=== PATIENT | female | born 1965 | race Caucasian/White ===

== ENCOUNTER 2019-06-03 22:07 | Inpatient (IN) | payer BC ==
[~2019-06-03] VITALS: Ht 165.1 cm; Wt 99.9 kg
[2019-06-03] MEDS: D5.45%NS/KCL 20MEQ 1,000 ML IV SCH (01:45)
[2019-06-03] MEDS ORDERED: ONDANSETRON HCL INJ 2MG/ML 2ML 2 MG/ML VIAL IV STA (22:18)
[2019-06-03] MEDS ORDERED: KETOROLAC TROMETHAMINE 30 MG/ML VIAL IV STA (22:18)
--- NOTE | 2019-06-03 22:56 | Diagnostic Imaging Report ---
CT Abdomen and Pelvis without contrast INDICATION: Right upper quadrant pain, ^ruq abd pain ^[id number] ^[id number] TECHNIQUE: Thin collimation axial images obtained from the diaphragm to the level of the pubic symphysis without nonionic intravenous contrast. Dose reduction techniques used: Automated exposure control, adjustment of the mAs and/or kVp according to patient size, standardized low-dose protocol, and/or iterative reconstruction technique. RADIATION DOSE: Total DLP: 792.6 mGy*cm Estimated effective dose: (DLP x 0.015 x size factor) mSv CTDIvol has been reviewed. It is below the limits set by the Radiation Protocol Committee (RPC). COMPARISON: None. ABDOMEN FINDINGS: Lung Bases: Clear. The visualized portion of the mediastinum is normal. Liver: Normal in attenuation without mass. Gallbladder: Present and contains multiple calcified gallstones measuring up to 2 cm. The gallbladder rodrigues are mildly thickened. No ductal dilatation. Pancreas: Normal attenuation without mass. Spleen: Normal size without mass. Adrenal Glands: No evidence for mass. Kidneys: Right: No renal calculus. No cortical mass or hydronephrosis Left: No renal calculus. No cortical mass or hydronephrosis Lymph Nodes: No lymphadenopathy. Aorta: Normal in diameter. PELVIS FINDINGS: Bowel: Stomach: Normal. Small Bowel: Normal in caliber with normal wall thickness. Large Bowel: Diverticulosis coli. No associated inflammation. No large bowel dilatation. Appendix: Normal. Bladder: Normal. Ureters: No ureteral dilatation or calculus. The uterus is present and normal in morphology. No adnexal mass. Peritoneum/retroperitoneum: No free fluid or fluid collection. Bones: Mild degenerative changes of the spine particularly on the right at L4-5. IMPRESSION: 1. Cholelithiasis with gallbladder wall thickening. Please correlate for signs/symptoms of acute cholecystitis. No biliary ductal dilatation. 2. Diverticulosis coli. No diverticulitis. No bowel obstruction. Normal appendix. Signed by: Dr. Mamie River MD on 06/03/2019 10:54 PM
--- NOTE | 2019-06-03 23:32 | NUR ---
[facility] NOTIFED OF TRANSFER NO ETA GIVEN, SPOKE WITH ROSITA
[2019-06-03] MEDS ORDERED: LEVOFLOXACIN 500MG/D5W 100ML 100 ML IV STA (23:35)
[2019-06-03] MEDS ORDERED: METRONIDAZOLE 500MG/NS 100ML 100 ML IV STA (23:35)
--- OUTSIDE RECORDS SUMMARY | 2019-06-03 23:47 | XMS REPORT ---
Author [facility] Address Unknown Phone Unavailable Care Team Providers Care Interior Wall Assembler Name Role Phone TERE LEYVA Unavailable Unavailable Problems This patient has no known problems. Allergies, Adverse Reactions, Alerts This patient has no known allergies or adverse reactions. Medications This patient has no known medications. Results Test Description Test Time Test Comments Text Results Atomic Results Result Comments CT ABD/PEL WO CONTRAST-HOPD 2019-06-03 22:51:00 [place] [address] Patient Name: RAYMOND GUZMAN MR #: [id number] : 1965 Age/Sex: 53/F Req #: [id number] Adm Physician: Ordered by: TERE LEYVA MD Report #: [id number] Location: [facility] Room/Bed: Procedure: [id number] HOPD/CT ABD/PEL WO CONTRAST-HOPD Exam Date: 06/03/19 Exam Time: 2234 REPORT STATUS: Signed CT Abdomen and Pelvis without contrast INDICATION: Right upper quadrant pain, ruq abd pain [id number] TECHNIQUE: Thin collimation axial images obtained from the diaphragm to the level of the pubic symphysis without nonionic intravenous contrast. Dose reduction techniques used: Automated exposure control, adjustment of the mAs and/or kVp according to patient size, standardized low-dose protocol, and/or iterative reconstruction technique. RADIATION DOSE: Total DLP: 792.6 mGy*cm Estimated effective dose: (DLP x 0.015 x size factor) mSv CTDIvol has been reviewed. It is below the limits set by the Radiation Protocol Committee (RPC). COMPARISON: None. ABDOMEN FINDINGS: Lung Bases: Clear. The visualized portion of the mediastinum is normal. Liver: Normal in attenuation without mass. Gallbladder: Present and contains multiple calcified gallstones measuring up to 2 cm. The gallbladder rodrigues are mildly thickened. No ductal dilatation. Pancreas: Normal attenuation without mass. Spleen: Normal size without mass. Adrenal Glands: No evidence for mass. Kidneys: Right: No renal calculus. No cortical mass or hydronephrosis Left: No renal calculus. No cortical mass or hydronephrosis Lymph Nodes: No lymphadenopathy. Aorta: Normal in diameter. PELVIS FINDINGS: Bowel: Stomach: Normal. Small Bowel: Normal in caliber with normal wall thickness. Large Bowel: Diverticulosis coli. No associated inflammation. No large bowel dilatation. Appendix: Normal. Bladder: Normal. Ureters: No ureteral dilatation or calculus. The uterus is present and normal in morphology. No adnexal mass. Peritoneum/retroperitoneum: No free fluid or fluid collection. Bones: Mild degenerative changes of the spine particularly on the right at L4-5. IMPRESSION: 1. Cholelithiasis with gallbladder wall thickening. Please correlate for signs/symptoms of acute cholecystitis. No biliary ductal dilatation. 2. Diverticulosis coli. No diverticulitis. No bowel obstruction. Normal appendix. Signed by: Dr. Dimitri River MD on 06/03/2019 10:54 PM Dictated By: DIMITRI RIVER MD [id number] Transcribed By: KURT on 06/03/19 7028 COPY TO: TERE LEYVA MD
[2019-06-04] VITALS (9 sets, daily range): BP systolic 116–134; BP diastolic 56–74
--- NOTE | 2019-06-04 01:10 | NUR ---
PATIENT WAS BROUGHT FROM [facility] IN [facility]RETCHER WITH C/O ABD.PAIN.ASSESSMENT DONE.AAOX4.AMBULATES.IV TO LEFT HAND IS PATENT.IV FLUID RUNNING. PER REPORT NOT TAKING HOME MEDICATION.ORIENTED TO THE UNIT.BED LOCKED AND IN LOWEST POSITION.PHONE AND CALL LIGHT WITHIN REACH.INSTRUCTED TO CALL FOR ASSISTANCE NEEDED.
[2019-06-04] MEDS: LEVOFLOXACIN 500MG/D5W 100ML IV SCH ×2 (01:56→23:17)
[2019-06-04] MEDS: ONDANSETRON HCL INJ 2MG/ML 2ML 2 MG/ML VIAL IV PRN ×6 (02:09→21:24)
[2019-06-04] MEDS: MORPHINE SULFATE INJ 4 MG/ML INJ 1ML IV PRN ×4 (02:09→14:30)
[2019-06-04] MEDS: METRONIDAZOLE 500MG/NS 100ML IV SCH ×4 (05:22→17:10)
[2019-06-04 06:33] LABS: BASOPHILS % 0.3 % (0.0-1.0); EOSINOPHILS # (AUTO) 0.1 (0.0-0.4); EOSINOPHILS % 1.5 % (0.0-6.0); HEMATOCRIT 38.5 % (34.2-44.1); HEMOGLOBIN 12.5 g/dL (12.0-16.0); LYMPHOCYTES # (AUTO) 2.3 (1.0-3.2); LYMPHOCYTES % 35.8 % (18.0-39.1); MEAN CORPUSCULAR HEMOGLOBIN 31.1 pg (28-32); MEAN CORPUSCULAR HGB CONC 32.5 g/dL (31-35); MEAN CORPUSCULAR VOLUME 95.8 fL (81-99); MONOCYTES # (AUTO) 0.6 (0.2-0.8); MONOCYTES % 9.7 % (4.4-11.3); NEUTROPHILS # (AUTO) 3.4 (2.1-6.9); NEUTROPHILS % 52.5 % (38.7-80.0); PLATELET COUNT 165 x10e3/uL (140-360); RED BLOOD COUNT 4.02 x10e6/uL (3.6-5.1)
--- NOTE | 2019-06-04 07:00 | NUR ---
BEDSIDE ROUNDS DONE. PT IS ALERT RESTING IN BED, NO S/S OF DISTRESS. CALL LIGHT WITHIN REACH AND INSTRUCTED PT OT CALL RN FOR HELP. FAMILY IS AT THE BEDSIDE
[2019-06-04 07:01] LABS: ALANINE AMINOTRANSFERASE 11 IU/L (0-55); ALBUMIN 3.3 g/dL (3.5-5.0); ALBUMIN/GLOBULIN RATIO 1.3 (0.8-2.0); ALKALINE PHOSPHATASE 55 IU/L (40-150); BLOOD UREA NITROGEN 8 mg/dL (7-26); BUN/CREATININE RATIO 12 (6-25); CALCIUM 8.5 mg/dL (8.4-10.2); CARBON DIOXIDE 24 mmol/L (22-29); CHLORIDE 108 mmol/L (98-107); CREATININE, SERUM 0.69 mg/dL (0.57-1.11); EST GLOMERULAR FILTRATION RATE > 60 ML/MIN (60-); GLUCOSE 97 mg/dL (74-118); SODIUM 140 mmol/L (136-145)
--- NOTE | 2019-06-04 07:05 | NUR ---
Bed side shift report given to oncoming RN.stable condition.
[2019-06-04] MEDS: D5.45%NS/KCL 20MEQ 1,000 ML IV SCH ×2 (11:16→21:24)
--- NOTE | 2019-06-04 11:37 | NUR ---
Dr. Mariee at the bedside, changed diet to clear liquids and ordered US of gallbladder. plans to perform surgery 06/05/2019 pending results of US. provided pt with water and jello per pt's request.
--- NOTE | 2019-06-04 13:40 | NUR ---
patient education rendered, consent form signed.
--- NOTE | 2019-06-04 14:20 | Diagnostic Imaging Report ---
EXAM: Gallbladder Ultrasound INDICATION: gallstones COMPARISON: None. TECHNIQUE: Transverse and longitudinal images of the gallbladder were obtained. FINDINGS: Liver: Size: 15.0 cm in the right midclavicular line, normal Appearance: Normal echogenicity, smooth contour Mass: No focal masses Gallbladder: Stones/Sludge: Multiple gallstones are seen in the gallbladder Wall: 0.5 cm Appearance: Mild wall thickening, no pericholecystic fluid or hydrops. Sonographic Stevens's Sign: Positive. Bile Ducts: Intrahepatic Ducts: No dilatation Extrahepatic Ducts: Common bile duct measures ... cm, no dilatation Pancreas: Visualized portions of the pancreatic head, neck and proximal body are normal. Right Kidney: Size: 9.8 cm Echogenicity: Normal Parenchymal thickness: Normal Collecting system: No hydronephrosis Stones: None Cyst/Mass: None Free Fluid: No ascites or pleural effusion IMPRESSION: Cholelithiasis with ultrasound finding suggestive of acute cholecystitis. Signed by: Cesar Polanco MD on 06/04/2019 2:17 PM
--- NOTE | 2019-06-04 17:13 | NUR ---
PATIENT C/O BREAKTHROUGH PAIN AND NAUSEA. PAGED DR. MCRAE FOR NEW ORDERS, WAITING FOR CALL BACK
[2019-06-04] MEDS: HYDROMORPHONE 1MG/1ML INJ IV PRN ×2 (17:25→21:24)
--- NOTE | 2019-06-04 19:19 | NUR ---
Received bedside report from day nurse. Patient resting in bed, no s/s of distress or c/o pain at this time. All safety measures in place. Will continue to monitor.
--- NOTE | 2019-06-04 19:39 | History and Physical ---
CHIEF COMPLAINT: Abdominal pain. HISTORY OF PRESENT ILLNESS: This patient is a 53-year-old female with a 4-day history of pain in epigastric region, waking patient up at night with nausea. No vomiting. The patient has been taking Tums with minimal relief. She denies fever, chills, or diarrhea. She has no previous attacks. PAST MEDICAL HISTORY: Negative for chronic illness. PAST SURGICAL HISTORY: Positive for knee and back surgery. ALLERGIES: SHE HAS NO DRUG ALLERGIES. SOCIAL HABITS: The patient drinks socially, but does not smoke. REVIEW OF SYSTEMS: No chest pain, shortness of breath, or cough. PHYSICAL EXAMINATION: VITAL SIGNS: Stable. She is afebrile. She is awake, alert, in mild discomfort. HEENT: Sclerae anicteric. NECK: Supple. LUNGS: Clear. HEART: Regular rate and rhythm. ABDOMEN: Soft with mild guarding in the right upper quadrant without rebound. LABORATORY DATA: White cell count is 6, hemoglobin of 12. Creatinine of 7 and liver function tests within normal limits. CT of the abdomen does show gallstones with mild wall thickening. ASSESSMENT: Cholelithiasis and probable cholecystitis. PLAN: Laparoscopic cholecystectomy. Attendant risks discussed. MD VIRIDIANA Aceves/EMERITA /[id number]
[2019-06-05] VITALS (9 sets, daily range): BP systolic 109–162; BP diastolic 69–86
[2019-06-05] MEDS: METRONIDAZOLE 500MG/NS 100ML IV SCH ×4 (00:18→18:27)
[2019-06-05] MEDS: ONDANSETRON HCL INJ 2MG/ML 2ML 2 MG/ML VIAL IV PRN ×5 (01:22→18:27)
[2019-06-05] MEDS: HYDROMORPHONE 1MG/1ML INJ IV PRN ×5 (01:22→18:27)
[2019-06-05] MEDS: D5.45%NS/KCL 20MEQ 1,000 ML IV SCH ×5 (06:25→23:14)
--- NOTE | 2019-06-05 07:08 | NUR ---
Received patient lying in bed with eyes open. Respiration even and unlabored without SOB. Call light in reach. Denies pain at this time. Patient is currently NPO at this time awaiting for surgery.
--- NOTE | 2019-06-05 07:16 | NUR ---
Bedside report given to day nurse. Patient resting in bed, no s/s of distress at this time. Assisted to restroom and back. All safety measures in place. Family at bedside.
[2019-06-05] MEDS ORDERED: BUPIVACAINE 0.5%/EPI 30 ML SDV INJ ONE (07:18)
--- NOTE | 2019-06-05 07:35 | NUR ---
Patient is transported for surgery at this time.
[2019-06-05] MEDS ORDERED: PROPOFOL IV EMULSION 10 MG/ML 20 ML VIAL ONE (14:09)
[2019-06-05] MEDS ORDERED: NEOSTIGMINE 1 MG/ML 10ML VIAL ONE (14:09)
[2019-06-05] MEDS ORDERED: ONDANSETRON HCL INJ 2MG/ML 2ML 2 MG/ML VIAL ONE (14:09)
[2019-06-05] MEDS ORDERED: LABETALOL HCL 5 MG/ML 20ML VIAL ONE (14:09)
[2019-06-05] MEDS ORDERED: ROCURONIUM BROMIDE 10 MG/ML 5ML VIAL ONE (14:09)
[2019-06-05] MEDS ORDERED: DEXAMETHASONE SOD PHOS INJ 4 MG/ML VIAL ONE (14:09)
[2019-06-05] MEDS ORDERED: GLYCOPYRROLATE INJ 0.2 MG/ML VIAL ONE (14:09)
[2019-06-05] MEDS ORDERED: CEFOXITIN SOD 1 GM VIAL ONE (14:09)
[2019-06-05] MEDS ORDERED: ACETAMINOPHEN 1000 MG/100 ML IV ONE (14:09)
[2019-06-05] MEDS ORDERED: LIDOCAINE HCL 2% LOCAL INJ 5 ML SDV VIAL INJ ONE (14:09)
[2019-06-05] MEDS ORDERED: SEVOFLURANE INHAL SOLN 250 ML PEN BTL ONE (14:09)
[2019-06-05] MEDS ORDERED: MIDAZOLAM HCL 2 MG/2 ML VIAL ONE (14:30)
[2019-06-05] MEDS ORDERED: FENTANYL CITRATE/PF 100MCG/2 ML INJ ONE (14:30)
--- NOTE | 2019-06-05 19:05 | NUR ---
Report given to night filler. Respiration even and unlabored without SOB. Call light in reach.
[2019-06-05] MEDS: LEVOFLOXACIN 500MG/D5W 100ML IV SCH (23:10)
[2019-06-06] VITALS: BP 120/66
[2019-06-06] MEDS: HYDROMORPHONE 1MG/1ML INJ IV PRN ×2 (00:39→06:10)
[2019-06-06] MEDS: ONDANSETRON HCL INJ 2MG/ML 2ML 2 MG/ML VIAL IV PRN ×2 (00:39→06:10)
[2019-06-06] MEDS: METRONIDAZOLE 500MG/NS 100ML IV SCH ×2 (00:51→06:10)
--- NOTE | 2019-06-06 01:16 | Operative Report ---
DATE OF PROCEDURE: 06/05/2019 SURGEON: Kade Mariee MD PREOPERATIVE DIAGNOSIS: Cholecystitis. POSTOPERATIVE DIAGNOSIS: Cholecystitis. OPERATIVE PROCEDURE: Laparoscopic cholecystectomy. ANESTHESIA: General. INDICATION: A 53-year-old female with 3-day history of pain in epigastrium, right upper quadrant with nausea and vomiting. The patient consented for laparoscopic cholecystectomy with ultrasound findings of gallstone and cholecystitis. Attendant risks have been discussed. PROCEDURE FINDINGS: Acute cholecystitis with stones at the neck of gallbladder. DESCRIPTION OF PROCEDURE: The patient was brought to the OR and intubated. The abdomen was prepped with alcohol and draped in sterile fashion. An infraumbilical incision was made and a 10 mm port inserted. Insufflation begun under direct vision, other port site placed in the midepigastric right upper quadrant. Gallbladder noted to be grossly inflamed and distended. It is decompressed with a needle. Fundus then retracted in cephalad direction. Next, the gallbladder retracted laterally with blunt dissection. The cystic artery and cystic duct isolated and junction of common bile duct was noted before triple clipping the cystic artery and cystic duct a centimeter away from the junction and divided these two cystic duct and cystic artery between clips. The gallbladder detached from the liver and taken out through umbilical incision. Operative field was irrigated. Hemostasis achieved. A 19-Green[place] Demar drain placed in the Cabral pouch and taken out through the right upper quadrant port site. All ports removed under direct vision. Fascia closure with 0 Vicryl, skin then closed with subcuticular stitch. The patient was extubated and transported to recovery room. BLOOD LOSS: 10 mL. Kade Mariee MD DNL/MODL /[id number]
[2019-06-06 04:00] VITALS: BP 120/64
--- NOTE | 2019-06-06 05:00 | NUR ---
Patient refused SCD's. states they are too hot.
--- NOTE | 2019-06-06 06:27 | NUR ---
Patient complaint of heartburn. Paged Dr. Mariee. Awaiting for response.
--- NOTE | 2019-06-06 06:45 | NUR ---
New orders received from Dr. Mariee.
[2019-06-06] MEDS ORDERED: FAMOTIDINE 20 MG/2 ML VIAL IV SCH ×2 (06:55→07:00)
--- NOTE | 2019-06-06 07:09 | Diagnostic Imaging Report ---
EXAMINATION: CHEST SINGLE (PORTABLE) INDICATION: Post op check for aspiration COMPARISON: None FINDINGS: TUBES and LINES: None. LUNGS: Bilateral lower lobe plate like atelectasis. PLEURA: No pleural effusion or pneumothorax. HEART AND MEDIASTINUM: The cardiomediastinal silhouette is unremarkable. BONES AND SOFT TISSUES: No acute osseous lesion. Soft tissues are unremarkable. UPPER ABDOMEN: No free air under the diaphragm. IMPRESSION: Bilateral lower lobe plate like atelectasis. Signed by: Dr. Linh Hayes M.D. on 06/06/2019 7:06 AM
[2019-06-06 07:40] VITALS: BP 156/72
[2019-06-06 08:43] VITALS: BP 156/72
[2019-06-06] MEDS ORDERED: FAMOTIDINE 20 MG TAB PO SCH (10:30)
[2019-06-06 11:16] VITALS: BP 121/53
[2019-06-06] MEDS ORDERED: METRONIDAZOLE 500 MG TAB PO SCH (12:00)
[2019-06-06] MEDS: D5.45%NS/KCL 20MEQ 1,000 ML IV SCH (12:08)
[2019-06-06] MEDS ORDERED: TYLENOL WITH C1 EACH PO (13:27)
--- NOTE | 2019-06-06 14:22 | NUR ---
ORDERS FROM DR. MCRAE TO soni PEÑALOZA DRAIN.
--- NOTE | 2019-06-06 15:00 | NUR ---
pt discharged home with family member, pt was educated on her prescription by my self and pharmacy. pt velarized understanding, pt iv site removed no swelling no redness to site. pt was asked to follow up with her PCP. pt and son verbalized understanding.
[2019-06-06] MEDS ORDERED: LEVOFLOXACIN 500 MG TAB PO SCH (23:00)
== END 2019-06-06 15:01 | disposition home or self-care (01) | DRG 418 ==
LOC: FSED 22:07 → ERHOLD 23:45 → MED/SURG 06-04 01:05
PROVIDERS: ADMIT Surgery; ATTEND Surgery
PROC: 0FT44ZZ Resection of Gallbladder, Percutaneous Endoscopic Approach (ICD-10-PCS; principal; 2019-06-05 07:30)
DX: K80.00 Calculus of gallbladder with acute cholecystitis without obstruction (principal); J98.11 Atelectasis; Z91.040 Latex allergy status
CPT/HCPCS: 36415; 71045; 74176; 76705; 80053; 80076; 81003; 85025; 87040; 88304; 93005; 96374; 96376; 99284; J0694; J1100; J1170; J1885; J1956; J2001; J2250; J2270; J2405; J2710; J3010